=== PATIENT | female | born 1990 | race Caucasian/White ===

== ENCOUNTER 2017-05-21 19:49 | Emergency (ER) | payer SELFPAY ==
[2017-05-21 19:56] VITALS: BP 120/56
--- NOTE | 2017-05-21 20:12 | ERNOTE ---
Medical Problem HPI - Narrative Date of Service: 05/21/17 - General Chief Complaint: General Assessment Time Seen by Provider: 05/21/17 20:11 Source: patient Exam Limitations: no limitations - Immun/Allergies/Home Medications Immunizations: IMMUNIZATION HX Immunizations Up to Date Yes Allergies/Adverse Reactions: Allergies morphine Allergy (Severe, Verified 05/21/17 19:56) Anaphylaxis Home Medications: HOME MEDICATIONS NK [No Home Medication] 05/21/17 [Last Taken Unknown] - History of Present History Narrative: Pt. comes in with c/o a small round painful lump behind her R ear that started last night. Pt. states that she has felt some nasal congestion, and pain with opening her jaw or turning her head to the left, but denies any fevers, cough, SOB, CP, NVD, alleviating or aggravating factors or prehospital treatment. Timing: getting worse Severity: mild Modifying Factors - (Improves): Present: other - denies Modifying Factors - (Worsens): Present: movement - of mouth and neck Review of Systems - Review of Systems Constitutional: Present: no symptoms reported. Absent: fever, chills, weakness , fatigue, malaise EYE: Present: no symptoms reported. Absent: eye pain, double vision ENT: Present: ear pain - R posterior, nose congestion. Absent: nose pain, nasal drainage, sore throat Respiratory: Present: no symptoms reported. Absent: shortness of breath, cough , wheezing Cardiology: Present: no symptoms reported. Absent: chest pain, palpitations, edema Gastrointestinal/Abdominal: Present: no symptoms reported. Absent: nausea, vomiting, diarrhea, abdominal pain Genitourinary: Present: no symptoms reported. Absent: frequency, decreased urinary output Musculoskeletal: Present: no symptoms reported. Absent: back pain, joint pain Skin: Present: lumps - R post ear Neurological: Present: no symptoms reported. Absent: headache, dizziness/light- headedness, numbness, tingling All Other Systems: All systems neg except as marked - Patient's Past Medical History Patient History - Medical: No pertinent hx Patient History - Cardiac/Respiratory: No pertinent hx Patient History - Cancer: No Hx of Cancer Patient History - Surgical Procedures: ENT, Orthopedic Patient History - Other: None LMP (females 10-50): 3 months - Social History Living Situations: home Psych History: No pertinent hx Smoking Status: Current every day smoker Alcohol Use: occasionally Drug Use: none - Immunizations Immunizations Up to Date: Yes Physical Exam - Physical Exam General Appearance: Present: wd/wn, alert, no apparent distress Head Exam: Present: normal inspection, no evidence of injury Eye Exam: Normal inspection: bilateral Ears, Nose, Throat: Present: nasal congestion, normal pharynx Neck: Present: normal inspection, lymphadenopathy (R) - post aricular tender Respiratory: Present: no respiratory distress, normal breath sounds, no accessory muscle use, chest nontender, lungs clear Cardiovascular/Chest: Present: regular rate, rhythm, no murmur, normal peripheral pulses Gastrointestinal/Abdominal: Present: normal bowel sounds, nontender, nondistended, soft, no organomegaly Back Exam: Present: normal inspection Extremity Exam: Present: normal inspection Neurological Exam: Present: alert, oriented, normal mood/affect, no motor/ sensory deficits Skin Exam: Present: normal color, warm/dry, other - R posterior auricular node as noted above ED Progress - Date and Time Seen: Date and Time: 05/21/17 21:12 Feel taht this is begning related to viral illness and will have pt. follow up with PCP if not improved and take NSAIDS for this. - Results and Orders Patient's Lab Results:: I have reviewed the patient's lab results. - Vital Signs Patient's Vital Signs:: I have reviewed the patient's vital signs. Vital Signs: Vital Signs 05/21/17 19:54 Temperature 37.4 C Pulse Rate 81 Respiratory 17 Rate Blood Pressure 120/56 O2 Sat by Pulse 99 Oximetry - Progress/Reassessment Chief Complaint: General Assessment Progress:: Unchanged Departure Clinical Impression: Lymphadenopathy, postauricular - Departure Disposition: Home self-care Condition: Good Instructions: Lymphadenopathy Additional Instructions: Please follow up with primary provider if not improved in 2-3 days may take Ibuprofen 600mg every 6 hours for pain.
[2017-05-21] MEDS ORDERED: IBUPROFEN 400 MG TABLET PO ONE (21:14)
[2017-05-21] MEDS ORDERED: IBUPROFEN 400 MG TABLET ONE (21:20)
== END 2017-05-21 21:23 | disposition home or self-care (01) ==
LOC: ER 19:49
DX: R59.0 Localized enlarged lymph nodes; F17.200 Nicotine dependence, unspecified, uncomplicated